=== PATIENT | female | born 1995 | race Caucasian/White ===

== ENCOUNTER 2017-02-25 01:42 | Emergency (ER) | payer SELFPAY ==
[~2017-02-25] VITALS: Ht 167.6 cm; Wt 117.0 kg
[2017-02-25 01:43] VITALS: BP 140/86; PULSE 110; RESP 16; TEMP 99.5; O2SAT 96
[2017-02-25] MEDS ORDERED: RESP: ALBUTEROL 2.5 MG/IPRATROPIUM 0.5 MG NEB (SCH) NEB ONE (02:30)
[2017-02-25] MEDS ORDERED: MORPHINE SULFATE 2 MG/ML INJ IV PUSH ONE (02:30)
--- NOTE | 2017-02-25 02:30 | PD ---
HPI Chief Complaint: Respiratory Symptoms Time Seen by Provider: 02:28 Travel History International Travel<30 days: No Contact w/Intl Traveler<30days: No Traveled to known affect area: No History of Present Illness HPI Patient is a 21-year-old female presents emergency Department left-sided chest pain, shortness of breath for the past few hours rapidly worsening. Patient states over the past few days she's been having cough productive of green sputum , no fevers. Patient states symptoms are severe, rapidly worsening, left side of the chest without radiation, coming in with shortness of breath. PFSH Past Medical History Medical History: Denies Significant Hx Diminished Hearing: No Tetanus Vaccination: Unknown Influenza Vaccination: No ?: Not Tubal Ligation: Yes Social History Alcohol Use: Yes (OCCASSIONALLY) Tobacco Use: No Substance Use: No Allergies-Medications (Allergen,Severity, Reaction): Coded Allergies: No Known Allergies (Unverified , 02/25/17) Reported Meds & Prescriptions Reported Meds & Active Scripts Active Azithromycin 250 Mg Tab 250 Mg PO DIRECTED Take 2 tabs (500 mg) on day 1 then 1 tab daily x 4 days. Review of Systems Except as stated in HPI: all other systems reviewed are Neg Physical Exam Narrative GENERAL: Well-developed well-nourished, diaphoretic, anxious. SKIN: Focused skin assessment warm/dry. HEAD: Atraumatic. Normocephalic. EYES: Pupils equal and round. No scleral icterus. No injection or drainage. ENT: No nasal bleeding or discharge. Mucous membranes pink and moist. NECK: Trachea midline. No JVD. CARDIOVASCULAR: Regular rate and rhythm. No murmur appreciated. RESPIRATORY: No accessory muscle use. Clear to auscultation. Breath sounds equal bilaterally. Tachypneic. GASTROINTESTINAL: Abdomen soft, non-tender, nondistended. Hepatic and splenic margins not palpable. MUSCULOSKELETAL: No obvious deformities. No clubbing. No cyanosis. No edema. NEUROLOGICAL: Awake and alert. No obvious cranial nerve deficits. Motor grossly within normal limits. Normal speech. PSYCHIATRIC: Appropriate mood and affect; insight and judgment normal. Data Data Last Documented VS Vital Signs Date Time Temp Pulse Resp B/P (MAP) Pulse Ox O2 Delivery O2 Flow Rate FiO2 02/25/17 06:10 89 122/76 (91) 100 02/25/17 04:45 24 Nasal Cannula 02/25/17 03:01 2.00 02/25/17 01:43 99.5 Orders Orders Complete Blood Count With Diff (02/25/17 02:21) Basic Metabolic Panel (Bmp) (02/25/17 02:21) Chest, Pa & Lat (02/25/17 02:21) Iv Access Insert/Monitor (02/25/17 02:21) Ecg Monitoring (02/25/17 02:21) Oxygen Administration (02/25/17 02:21) Oximetry (02/25/17 02:21) Electrocardiogram (02/25/17 02:21) D-Dimer (02/25/17 02:21) Morphine Inj (Morphine Inj) (02/25/17 02:30) Albuterol-Ipratropium Neb (Duoneb Neb) (02/25/17 02:30) Troponin I (02/25/17 02:28) Ondansetron Inj (Zofran Inj) (02/25/17 02:53) Ct Pulmonary Angiogram (02/25/17 ) Iohexol 350 Inj (Omnipaque 350 Inj) (02/25/17 04:34) Ed Discharge Order (02/25/17 05:28) Ondansetron Inj (Zofran Inj) (02/25/17 06:00) Labs Laboratory Tests Test 02/25/17 02:32 White Blood Count 10.7 TH/MM3 Red Blood Count 4.79 MIL/MM3 Hemoglobin 11.9 GM/DL Hematocrit 35.6 % Mean Corpuscular Volume 74.4 FL Mean Corpuscular Hemoglobin 24.8 PG Mean Corpuscular Hemoglobin Concent 33.3 % Red Cell Distribution Width 18.4 % Platelet Count 281 TH/MM3 Mean Platelet Volume 8.1 FL Neutrophils (%) (Auto) 72.0 % Lymphocytes (%) (Auto) 16.9 % Monocytes (%) (Auto) 8.5 % Eosinophils (%) (Auto) 2.2 % Basophils (%) (Auto) 0.4 % Neutrophils # (Auto) 7.7 TH/MM3 Lymphocytes # (Auto) 1.8 TH/MM3 Monocytes # (Auto) 0.9 TH/MM3 Eosinophils # (Auto) 0.2 TH/MM3 Basophils # (Auto) 0.0 TH/MM3 CBC Comment DIFF FINAL Differential Comment D-Dimer Quantitative (PE/DVT) 0.54 MG/L FEU Blood Urea Nitrogen 7 MG/DL Creatinine 0.78 MG/DL Random Glucose 98 MG/DL Calcium Level 8.6 MG/DL Sodium Level 138 MEQ/L Potassium Level 4.2 MEQ/L Chloride Level 108 MEQ/L Carbon Dioxide Level 24.1 MEQ/L Anion Gap 6 MEQ/L Estimat Glomerular Filtration Rate 92 ML/MIN Troponin I LESS THAN 0.02 NG/ML MDM Medical Decision Making Medical Screen Exam Complete: Yes Emergency Medical Condition: Yes Differential Diagnosis Pneumonia, PE, ACS unlikely. Narrative Course Patient roomed emergency department, given small dose of morphine, anxiolytic effect I think have greatly benefit at this patient. D-dimer weakly positive. Patient for CT PE study which was negative for PE but did show a lingular pneumonia. Labs are reassuring. Patient is feeling much better. Discussed symptomatic management, antibiotic therapy and returned ED criteria. Diagnosis Primary Impression: Pneumonia Qualified Codes: J18.9 - Pneumonia, unspecified organism Med/Other Pt SpecificInfo: Prescription(s) given Scripts Azithromycin (Azithromycin) 250 Mg Tab 250 MG PO DIRECTED for Infection, #6 TAB 0 Refills Take 2 tabs (500 mg) on day 1 then 1 tab daily x 4 days. Prov: Monty Little MD 02/25/17 Disposition: 01 DISCHARGE HOME Condition: Stable Monty Little MD Feb 25, 2017 02:30
[2017-02-25 02:52] LABS: AUTOMATED NEUTROPHIL # 7.7 TH/MM3 (1.8-7.7); BASOPHIL % 0.4 % (0.0-2.0); EOSINOPHIL # 0.2 TH/MM3 (0-0.4); EOSINOPHIL % 2.2 % (0.0-4.0); HEMATOCRIT 35.6 % (35.0-46.0); HEMO FLAGS DIFF FINAL; LYMPH % 16.9 % (9.0-44.0); LYMPHOCYTE # 1.8 TH/MM3 (1.0-4.8); MEAN CELL VOLUME 74.4 FL (80.0-100.0); MEAN CORPUSCULAR HEMOGLOBIN 24.8 PG (27.0-34.0); MEAN CORPUSCULAR HGB CONC 33.3 % (32.0-36.0); MONO % 8.5 % (0.0-8.0); PLATELET COUNT 281 TH/MM3 (150-450); RED BLOOD COUNT 4.79 MIL/MM3 (4.00-5.30); RED CELL DISTRIBUTION WIDTH 18.4 % (11.6-17.2); WHITE BLOOD COUNT 10.7 TH/MM3 (4.0-11.0)
[2017-02-25] MEDS ORDERED: ONDANSETRON HCL 4 MG/2 ML VIAL ONE (02:53)
[2017-02-25 03:01] VITALS: BP 139/65; PULSE 101; RESP 28; O2SAT 96
[2017-02-25 03:09] LABS: BICARBONATE 24.1 MEQ/L (21.0-32.0); POTASSIUM 4.2 MEQ/L (3.5-5.1)
--- NOTE | 2017-02-25 04:02 | RADRPT ---
EXAM DATE/TIME: 02/25/2017 02:42 [facility] COMPARISON: No previous studies available for comparison. INDICATIONS : Short of breath and chest pain. MEDICAL HISTORY : None. SURGICAL HISTORY : None. ENCOUNTER: Initial ACUITY: 2 days PAIN SCORE: 5/10 LOCATION: Left chest inferior FINDINGS: PA and lateral views of the chest demonstrate the lungs to be symmetrically aerated without evidence of mass, infiltrate or effusion. The cardiomediastinal contours are unremarkable. Osseous structure s are intact. CONCLUSION: No acute disease. Sonido Carrington MD on February 25, 2017 at 4:00 Board Certified Radiologist. This report was verified electronically.
[2017-02-25] MEDS ORDERED: IOHEXOL 350 MG/ML 10 ML VIAL (for RAD DIAG) IVCONTRAST ONE (04:34)
[2017-02-25 04:45] VITALS: BP 117/67; PULSE 103; RESP 24; O2SAT 96
--- NOTE | 2017-02-25 04:48 | RADRPT ---
EXAM DATE/TIME: 02/25/2017 04:22 [facility] COMPARISON: No previous studies available for comparison. INDICATIONS : Cough. Elevated d-dimer. IV CONTRAST: 70 cc Omnipaque 350 (iohexol) IV RADIATION DOSE: 26.15 CTDIvol (mGy) MEDICAL HISTORY : None SURGICAL HISTORY : None. ENCOUNTER: Initial ACUITY: 1 day PAIN SCALE: 0/10 LOCATION: chest TECHNIQUE: Volumetric scanning of the chest was performed using a pulmonary embolism protocol MIP images were re constructed. Using automated exposure control and adjustment of the mA and/or kV according to patien t size, radiation dose was kept as low as reasonably achievable to obtain optimal diagnostic quality images. DICOM format image data is available electronically for review and comparison. Follow-up recommendations for detected pulmonary nodules are based at a minimum on nodule size and pa tient risk factors according to Fleischner Society Guidelines. FINDINGS: PULMONARY ARTERIES: No filling defects are seen in the pulmonary arteries through the segmental level. LUNGS: There is no consolidation or pneumothorax . Patchy nodular densities the lingula largest nodule measu res 9 mm. Minimal density left lower lobe. PLEURAE: There is no pleural thickening or pleural effusion. MEDIASTINUM: There is good visualization of the great vessels of the middle mediastinum. No evidence of mediastin al or hilar adenopathy/mass. MUSCULOSKELETAL: Within normal limits for patient age. MISCELLANEOUS: The visualized upper abdominal organs demonstrate no acute abnormality. CONCLUSION: 1. No evidence for pulmonary embolism. 2. Patchy nodular densities in the lingula likely infiltrate. 3. Left basilar atelectasis. Sonido Carrington MD on February 25, 2017 at 4:44 Board Certified Radiologist. This report was verified electronically.
[2017-02-25] MEDS ORDERED: AZIT250T3 PO (05:19)
[2017-02-25] MEDS ORDERED: ONDANSETRON HCL 4 MG/2 ML VIAL IV PUSH ONE (06:00)
[2017-02-25 06:10] VITALS: BP 122/76
--- NOTE | 2017-02-25 23:12 | EKG ---
Date Performed: 02/25/2017 Time Performed: 02:31:40 PTAGE: 21 years EKG: SINUS TACHYCARDIA ABNORMAL RHYTHM ECG NO PREVIOUS TRACING DOCTOR: Lonnie Aragon Interpretating Date/Time 02/25/2017 23:11:10
== END 2017-02-25 06:14 | disposition home or self-care (01) ==
LOC: NEPE 01:42
DX: J18.9 Pneumonia, unspecified organism (principal); R94.31 Abnormal electrocardiogram [ECG] [EKG]
CPT/HCPCS: 71020; 71275; 80048; 84484; 85025; 85379; 93005; 94664; 96374; 96375; 99285; J2270; Q9967; J2405

== ENCOUNTER 2017-04-23 11:10 | Emergency (ER) | payer SELFPAY ==
[~2017-04-23] VITALS: Ht 170.2 cm; Wt 123.0 kg
[~2017-04-23 11:10] MED LIST: AZIT250T3 PO
[2017-04-23 11:13] VITALS: BP 158/88; PULSE 88; RESP 12; TEMP 98.2; O2SAT 99
--- NOTE | 2017-04-23 11:25 | PD ---
HPI Chief Complaint: Injury Time Seen by Provider: 11:17 Travel History International Travel<30 days: No Contact w/Intl Traveler<30days: No Traveled to known affect area: No History of Present Illness HPI 21-year-old female presents, complaining of left fourth and fifth toe pain after accidentally hitting the wall today. Patient states that she has severe pain of her 4th and 5th toes. Pain increases movement, decreases with rest. Patient states she does have sensation is able to move her toes appropriately. Patient denies ankle pain. Denies any medical issues or chronic medication use. Patient has not taken any medication for this yet. PFSH Past Medical History Diminished Hearing: No Reproductive: Yes (tubal ligation) ?: Not Tubal Ligation: Yes Social History Alcohol Use: Yes (OCCASSIONALLY) Tobacco Use: No Substance Use: No Allergies-Medications (Allergen,Severity, Reaction): Coded Allergies: No Known Allergies (Unverified , 02/25/17) Reported Meds & Prescriptions Reported Meds & Active Scripts Active Ibuprofen 800 Mg Tab 800 Mg PO TID 5 Days Azithromycin 250 Mg Tab 250 Mg PO DIRECTED Take 2 tabs (500 mg) on day 1 then 1 tab daily x 4 days. Review of Systems Except as stated in HPI: all other systems reviewed are Neg Physical Exam Narrative GENERAL: Well-nourished, well-developed patient. SKIN: Focused skin assessment warm/dry. HEAD: Normocephalic. EYES: No scleral icterus. No injection or drainage. NECK: Supple, trachea midline. No JVD CARDIOVASCULAR: Regular rate and rhythm without murmurs, gallops, or rubs. RESPIRATORY: Breath sounds equal bilaterally. No accessory muscle use. MUSCULOSKELETAL: No cyanosis, or edema. Left foot-fourth and fifth toes tender to palpation. No crepitus or deformities. Mild ecchymosis at the MTP use. Ankle full range of motion without pain. Neurovascularly intact BACK: Nontender without obvious deformity. No CVA tenderness. Data Data Last Documented VS Vital Signs Date Time Temp Pulse Resp B/P (MAP) Pulse Ox O2 Delivery O2 Flow Rate FiO2 04/23/17 12:53 141/68 (92) 04/23/17 11:13 98.2 88 12 99 Orders Orders Foot, Complete (Voh3nlp) (04/23/17 ) Ibuprofen (Motrin) (04/23/17 11:30) Ed Discharge Order (04/23/17 12:22) Mandatory Outpatient Referral (04/23/17 12:26) Splint Or Brace Apply/Monitor (04/23/17 12:44) [facility] Medical Decision Making Medical Screen Exam Complete: Yes Emergency Medical Condition: Yes Differential Diagnosis Left toe sprain versus strain versus fracture versus contusion Narrative Course 21-year-old female presents, complaining of left fourth and fifth toe pain after accidentally hitting the wall today. Patient states that she has severe pain of her 4th and 5th toes. Pain increases movement, decreases with rest. Patient states she does have sensation is able to move her toes appropriately. Patient denies ankle pain. Denies any medical issues or chronic medication use. Patient has not taken any medication for this yet. Vital signs stable Physical exam consistent with left toe fracture versus contusion. Neurovascular intact. Last Impressions Foot X-Ray 04/23/17 0000 Signed Impressions: Service Date/Time: Sunday, April 23, 2017 11:34 - CONCLUSION: 1. Oblique fracture of the proximal fourth phalanx. Harmeet Angel MD I explained the results to the patient and patient was upset. Patient apparently starts the [employer] in May and is concerned that she may not be able to perform the required duties. I advised patient to follow up with hydraulic auto jack mechanic as discussed. Mandatory referral placed and she does not have health insurance. Toes were francy-taped. Offered crutches, pt refused. Pt will receive a walking shoe. Advised patient to follow up with primary care within 2-3 days. Advised to return to the emergency department for worsening or persistent symptoms. Diagnosis Primary Impression: Toe fracture Qualified Codes: S92.515A - Nondisplaced fracture of proximal phalanx of left lesser toe(s), initial encounter for closed fracture Referrals: Primary Care Physician Additional Instructions: Use ice or heat for symptom relief. If symptoms persist or worsen, return to the emergency department. Follow up with your primary care physician within 2 days. Continue to francy tape toe. Follow up with a hydraulic auto jack mechanic within 4-5 days. Scripts Ibuprofen (Ibuprofen) 800 Mg Tab 800 MG PO TID for Arthritis Pain for 5 Days, TAB 0 Refills Prov: Cortez Schmid MD 04/23/17 Disposition: 01 DISCHARGE HOME Condition: Stable Yuni Paredes Apr 23, 2017 11:25
[2017-04-23] MEDS ORDERED: IBUPROFEN 800 MG TAB PO ONE (11:30)
--- NOTE | 2017-04-23 12:09 | RADRPT ---
EXAM DATE/TIME: 04/23/2017 11:34 [facility] COMPARISON: No previous studies available for comparison. INDICATIONS : Left foot pain. Patient tripped over a ball. Pain near the fourth and fifth digit. MEDICAL HISTORY : None. SURGICAL HISTORY : None. ENCOUNTER: Initial ACUITY: 1 day PAIN SCORE: 10/10 LOCATION: Left foot. FINDINGS: There is an oblique fracture of the fourth proximal phalanx. Remaining osseous structures are intact. Joint spaces are maintained. Soft tissues are unremarkable. CONCLUSION: 1. Oblique fracture of the proximal fourth phalanx. Harmeet Angel MD on April 23, 2017 at 12:05 Board Certified Radiologist. This report was verified electronically.
[2017-04-23] MEDS ORDERED: IBUP1TAB7 PO (12:21)
[2017-04-23 12:53] VITALS: BP 141/68
== END 2017-04-23 12:54 | disposition home or self-care (01) ==
LOC: NEPD 11:10
DX: S92.515A Nondisplaced fracture of proximal phalanx of left lesser toe(s), initial encounter for closed fracture (principal); W22.01XA Walked into wall, initial encounter
CPT/HCPCS: 73630; 99285; E0113; L3260

== ENCOUNTER 2017-07-24 11:38 | Emergency (ER) | payer OTHER ==
[~2017-07-24] VITALS: Ht 170.2 cm; Wt 122.0 kg
[~2017-07-24 11:38] MED LIST changes: +IBUP1TAB7 PO
[2017-07-24 11:50] VITALS: BP 157/87; PULSE 95; RESP 20; TEMP 98.3; O2SAT 99
[2017-07-24] MEDS ORDERED: PROM25TA10 PO (12:54)
[2017-07-24] MEDS ORDERED: MULTTAB67 PO (12:54)
[2017-07-24] MEDS ORDERED: MEDR10TA7 PO (12:54)
[2017-07-24] MEDS ORDERED: FERR325T18 PO (12:54)
[2017-07-24] MEDS ORDERED: OXYC1CAP PO (12:54)
[2017-07-24 13:52] LABS: AUTOMATED NEUTROPHIL # 4.8 TH/MM3 (1.8-7.7); BASOPHIL % 0.5 % (0.0-2.0); EOSINOPHIL # 0.1 TH/MM3 (0-0.4); EOSINOPHIL % 1.2 % (0.0-4.0); HEMATOCRIT 32.3 % (35.0-46.0); LYMPH % 28.8 % (9.0-44.0); LYMPHOCYTE # 2.2 TH/MM3 (1.0-4.8); MEAN CELL VOLUME 75.8 FL (80.0-100.0); MEAN CORPUSCULAR HEMOGLOBIN 25.7 PG (27.0-34.0); MEAN CORPUSCULAR HGB CONC 33.9 % (32.0-36.0); MEAN PLATELET VOLUME 8.1 FL (7.0-11.0); MONO % 7.6 % (0.0-8.0); MONOCYTE # 0.6 TH/MM3 (0-0.9); NEUT % 61.9 % (16.0-70.0); PLATELET COUNT 344 TH/MM3 (150-450); RED BLOOD COUNT 4.27 MIL/MM3 (4.00-5.30); RED CELL DISTRIBUTION WIDTH 17.2 % (11.6-17.2); WHITE BLOOD COUNT 7.7 TH/MM3 (4.0-11.0)
[2017-07-24 14:00] LABS: PROTHROMBIN TIME - PATIENT 10.3 SEC (9.8-11.6)
--- NOTE | 2017-07-24 14:07 | PD ---
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 She has had an evaluation by GAME PROGRAMER and has a plan hysterectomy. Today she presents concerned that she may be anemic. Patient states that the GAME PROGRAMER has already started her on 1 oral contraceptives and then switch to another 1 to try and control her vaginal bleeding, but according to her it is not helping it continues to have vaginal bleeding. PFSH Past Medical History Diminished Hearing: No Genitourinary: Yes (CHRONIC VAGINAL BLEEDING) Reproductive: Yes (tubal ligation) Tetanus Vaccination: > 5 Years Influenza Vaccination: No ?: Not LMP: 05/23/17-07/24/17 : 2 Para: 2 Miscarriage: 0 : 0 Tubal Ligation: Yes Social History Alcohol Use: Yes (OCCASSIONALLY) Tobacco Use: No Substance Use: No Allergies-Medications (Allergen,Severity, Reaction): Coded Allergies: morphine (Verified Adverse Reaction, Severe, Nausea/Vomiting, 07/24/17) Reported Meds & Prescriptions Reported Meds & Active Scripts Active Ketorolac (Ketorolac Tromethamine) 10 Mg Tab 10 Mg PO TID PRN Reported Ferrous Sulfate 325 Mg (65 Mg Iron) Tablet 325 Mg PO TIDPC Oxycodone (Oxycodone HCl) 5 Mg Cap 2.5 Mg PO Q4H PRN Multiple Vitamin 1 Tab 1 Tab PO DAILY Medroxyprogesterone Acetate 10 Mg Tab 10 Mg PO BID Start day 21 Phenergan (Promethazine HCl) 25 Mg Tablet 25 Mg PO HS Review of Systems General / Constitutional: No: Fever Eyes: No: Visual changes HENT: No: Headaches Cardiovascular: No: Chest Pain or Discomfort Respiratory: No: Shortness of Breath Gastrointestinal: No: Abdominal Pain Genitourinary: Positive: Vaginal Bleeding Musculoskeletal: No: Pain Skin: No Rash Neurologic: No: Weakness Psychiatric: No: Depression Endocrine: No: Polydipsia Hematologic/Lymphatic: No: Easy Bruising Physical Exam Narrative GENERAL: SKIN: Warm and dry. HEAD: Atraumatic. Normocephalic. EYES: Pupils equal and round. No scleral icterus. No injection or drainage. ENT: No nasal bleeding or discharge. Mucous membranes pink and moist. NECK: Trachea midline. No JVD. CARDIOVASCULAR: Regular rate and rhythm. RESPIRATORY: No accessory muscle use. Clear to auscultation. Breath sounds equal bilaterally. GASTROINTESTINAL: Abdomen soft, non-tender, nondistended. MUSCULOSKELETAL: Extremities without clubbing, cyanosis, or edema. No obvious deformities. NEUROLOGICAL: Awake and alert. No obvious cranial nerve deficits. Motor grossly within normal limits. Five out of 5 muscle strength in the arms and legs. Normal speech. PSYCHIATRIC: Appropriate mood and affect; insight and judgment normal. Data Data Last Documented VS Vital Signs Date Time Temp Pulse Resp B/P (MAP) Pulse Ox O2 Delivery O2 Flow Rate FiO2 07/24/17 17:00 82 16 132/68 (89) 98 Room Air 07/24/17 11:50 98.3 Orders Orders Complete Blood Count With Diff (07/24/17 13:02) Comprehensive Metabolic Panel (07/24/17 13:02) Prothrombin Time / Inr (Pt) (07/24/17 13:02) Act Partial Throm Time (Ptt) (07/24/17 13:02) Thyroid Stimulating Hormone (07/24/17 13:02) Iv Access Insert/Monitor (07/24/17 13:02) Ecg Monitoring (07/24/17 13:02) Type And Screen (07/24/17 13:02) Ed Urine Pregnancytest Poc (07/24/17 13:15) Ketorolac Inj (Toradol Inj) (07/24/17 14:15) Ed Discharge Order (07/24/17 15:34) Morphine Inj (Morphine Inj) (07/24/17 15:45) Butorphanol Inj (Stadol Inj) (07/24/17 16:00) Labs Laboratory Tests Test 07/24/17 13:15 White Blood Count 7.7 TH/MM3 Red Blood Count 4.27 MIL/MM3 Hemoglobin 11.0 GM/DL Hematocrit 32.3 % Mean Corpuscular Volume 75.8 FL Mean Corpuscular Hemoglobin 25.7 PG Mean Corpuscular Hemoglobin Concent 33.9 % Red Cell Distribution Width 17.2 % Platelet Count 344 TH/MM3 Mean Platelet Volume 8.1 FL Neutrophils (%) (Auto) 61.9 % Lymphocytes (%) (Auto) 28.8 % Monocytes (%) (Auto) 7.6 % Eosinophils (%) (Auto) 1.2 % Basophils (%) (Auto) 0.5 % Neutrophils # (Auto) 4.8 TH/MM3 Lymphocytes # (Auto) 2.2 TH/MM3 Monocytes # (Auto) 0.6 TH/MM3 Eosinophils # (Auto) 0.1 TH/MM3 Basophils # (Auto) 0.0 TH/MM3 CBC Comment DIFF FINAL Differential Comment Prothrombin Time 10.3 SEC Prothromb Time International Ratio 1.0 RATIO Activated Partial Thromboplast Time 28.9 SEC Blood Urea Nitrogen 8 MG/DL Creatinine 0.70 MG/DL Random Glucose 84 MG/DL Total Protein 7.8 GM/DL Albumin 3.3 GM/DL Calcium Level 8.8 MG/DL Alkaline Phosphatase 72 U/L Aspartate Amino Transf (AST/SGOT) 35 U/L Alanine Aminotransferase (ALT/SGPT) 22 U/L Total Bilirubin 0.3 MG/DL Sodium Level 137 MEQ/L Potassium Level 4.6 MEQ/L Chloride Level 106 MEQ/L Carbon Dioxide Level 24.5 MEQ/L Anion Gap 7 MEQ/L Estimat Glomerular Filtration Rate 104 ML/MIN Thyroid Stimulating Hormone 3rd Gen 0.995 uIU/ML MDM Medical Decision Making Medical Screen Exam Complete: Yes Emergency Medical Condition: Yes Medical Record Reviewed: Yes Differential Diagnosis Dysfunctional uterine bleeding versus fibroid uterus versus anemia versus dehydration Narrative Course Patient CBC does not show any evidence of leukocytosis, anemia, normal platelet count, no left shift. Complete metabolic profile shows normal kidney functions normal liver functions normal pancreatic functions. Coagulation profile is within normal limits Patient is O- Diagnosis Primary Impression: Dysfunctional uterine bleeding Patient Instructions: Dysfunctional Uterine Bleeding (ED), General Instructions Additional Instructions: Please follow-up with your SECTIONIZER for further management Scripts Ketorolac (Ketorolac) 10 Mg Tab 10 MG PO TID Y for Pain Management, #14 TAB 0 Refills Prov: Kristopher Lopez MD 07/24/17 Disposition: 01 DISCHARGE HOME Condition: Stable Kristopher Lopez MD Jul 24, 2017 14:07
[2017-07-24] MEDS ORDERED: KETOROLAC TROMETHAMINE 30 MG/ML (IVP) VIAL IV PUSH ONE (14:15)
[2017-07-24 14:22] LABS: ALKALINE PHOSPHATASE 72 U/L (45-117); TOTAL BILIRUBIN ADULT 0.3 MG/DL (0.2-1.0); TOTAL PROTEIN 7.8 GM/DL (6.4-8.2)
[2017-07-24 14:41] LABS: ALBUMIN 3.3 GM/DL (3.4-5.0); ALT (GPT) 22 U/L (10-53); AST (GOT) 35 U/L (15-37); BICARBONATE 24.5 MEQ/L (21.0-32.0); BLOOD UREA NITROGEN 8 MG/DL (7-18); CALCIUM 8.8 MG/DL (8.5-10.1); CHLORIDE 106 MEQ/L (98-107); GLOMERULAR FILTRATION RATE 104 ML/MIN (>89); GLUCOSE,RANDOM 84 MG/DL (74-106); SODIUM (NA) 137 MEQ/L (136-145)
[2017-07-24] MEDS ORDERED: KETO10 PO (15:34)
[2017-07-24] MEDS ORDERED: MORPHINE SULFATE 2 MG/ML INJ IV PUSH ONE (15:45)
[2017-07-24] MEDS ORDERED: BUTORPHANOL TARTRATE INJ 2 MG/ML VIAL IV PUSH ONE (16:00)
[2017-07-24 17:00] VITALS: BP 132/68; PULSE 82; RESP 16; O2SAT 98
== END 2017-07-24 17:16 | disposition home or self-care (01) ==
LOC: NEPD 11:38
DX: N93.8 Other specified abnormal uterine and vaginal bleeding (principal); Z88.5 Allergy status to narcotic agent
CPT/HCPCS: 80053; 84443; 84703; 85025; 85610; 85730; 86850; 86900; 86901; 96374; 96375; 99284; J0595; J1885